=== PATIENT | female | born 1940 | race Caucasian/White ===

== ENCOUNTER 2016-11-06 10:36 | Outpatient (CLI) | payer MEDICARE, OTHER | END 2016-11-06 10:37 | disposition home or self-care (01) | DX: Z78.0 Asymptomatic menopausal state (principal) ==

== ENCOUNTER 2017-02-24 12:47 | Outpatient (CLI) | payer MEDICARE, OTHER ==
--- NOTE | 2017-02-26 07:53 | Mammography Report ---
DIGITAL BILATERAL SCREENING MAMMOGRAM: 02/24/2017 CLINICAL HISTORY: A 76-year-old female in for routine screening mammogram. Patient indicates no fam sarah history of breast cancer. No breast surgical history. COMPARISON: 06/06/2007, 05/21/2008, 05/16/2009, 04/24/2010, 06/15/2011, 11/09/2012, 12/12/2013, 12/08, 02/20/2016 TECHNIQUE: Craniocaudad and oblique lateral views of each breast were obtained with [employer] Full Fie ld digital mammography. FINDINGS: Breast parenchyma consists of scattered fibroglandular densities. No significant clusters of calcification are seen. No significant masses are noted. No change is detected. IMPRESSION: BREASTS APPEAR RADIOGRAPHICALLY BENIGN. BIRADS CATEGORY 1 - NEGATIVE. RECOMMENDATIONS: Annual bilateral screening mammography. STANDARD QUALIFYING STATEMENTS 1. This examination was reviewed with the aid of Computer-Aided Detection (CAD). 2. A negative or benign imaging report should not delay biopsy if clinically suspicious findings are present. Consider surgical consultation if warranted. More than 5% of cancers are not identified by i maging. 3. Dense breasts may obscure an underlying neoplasm. 08:9:45 JOB #: [id number] EXT JOB #:[id number]
== END 2017-02-24 12:48 | disposition home or self-care (01) ==
LOC: DI 12:47
PROVIDERS: ATTEND Physician Assistant Medical
DX: Z12.31 Encounter for screening mammogram for malignant neoplasm of breast (principal)
CPT/HCPCS: 77067

== ENCOUNTER 2018-04-28 14:57 | Outpatient (CLI) | payer MEDICARE, OTHER ==
--- NOTE | 2018-05-03 11:39 | Mammography Report ---
Reason: SCREENING MAMMO Procedure Date: 04/28/2018 Accession Number: [id number] / [id number] Procedure: [facility] - Screening Mammo Dig Bilat CPT Code: FULL RESULT: EXAM: Screening Mammo Dig Bilat DATE: 04/28/2018 3:27 PM CLINICAL HISTORY: 77 year-old nulliparous female presents for screening mammogram. TECHNIQUE: Bilateral CC and MLO views were obtained. COMPARISON: 02/24/2017, 02/20/2016, 01/01/2015, 12/12/2013. FINDINGS: The breasts demonstrate scattered fibroglandular densities bilaterally. There is a well-circumscribed hyperdense enlarging 6 mm mass in the left upper breast at middle depth, 7.1 cm from the nipple at the 11:00 position. The finding is not definitely present in 2014, question early present in 2015 and enlarged compared to 2016. While this finding may represent a lymph node, no definite fatty hilum is appreciated. This finding should be further evaluated by spot views and ultrasound. No suspicious right breast masses, clustered microcalcifications, or regions of architectural distortion are identified. IMPRESSION: Incomplete examination RECOMMENDATION: Additional evaluation as above. BIRADS CATEGORY 0: Incomplete examination STANDARD QUALIFYING STATEMENTS: 1. This examination was not reviewed with the aid of Computer-Aided Detection (CAD). 2. A negative or benign imaging report should not delay biopsy if clinically suspicious findings are present. Consider surgical consultation if warrented. More than 5% of cancers are not identified by imaging. 3. Dense breasts may obscure an underlying neoplasm.
== END 2018-04-28 14:58 | disposition home or self-care (01) ==
LOC: DI 14:57
PROVIDERS: ATTEND Radiology Diagnostic Radiology
DX: Z12.31 Encounter for screening mammogram for malignant neoplasm of breast (principal)
CPT/HCPCS: 77067

== ENCOUNTER 2018-05-18 08:33 | Outpatient (CLI) | payer MEDICARE, OTHER ==
--- NOTE | 2018-05-18 14:55 | Mammography Report ---
Reason: ABN MAMMO - LT SPEC VIEWS Procedure Date: 05/18/2018 Accession Number: [id number] / [id number] Procedure: [facility]ENN[facility] - Diag Special Views Dig LT CPT Code: FULL RESULT: EXAM: Diag Special Views Dig LT DATE: 05/18/2018 9:16 AM CLINICAL HISTORY: 77-year-old female recalled from screening for a 6 mm mass in the left upper breast. TECHNIQUE: Left spot CC and MLO views are performed. Focused breast ultrasound is also performed. COMPARISON: 04/28/2018, 02/24/2017. FINDINGS: The breasts demonstrate scattered fibroglandular densities bilaterally. The well-circumscribed hyperdense mass persists on mammographic spot views. Focused breast ultrasound reveals a heterogeneous subcutaneous collection/mass. Physical examination and history revealed that is likely a sebaceous cyst. Based on this, the radiologist expressed the lesion with findings consistent with a sebaceous cyst. Follow-up ultrasound revealed a ducts leading from the lesion to the skin surface, consistent with sebaceous cyst. A benign finding. IMPRESSION: Benign findings RECOMMENDATION: Recommend routine annual Screening mammography unless otherwise clinically indicated. BIRADS CATEGORY 2: Benign findings STANDARD QUALIFYING STATEMENTS: 1. This examination was not reviewed with the aid of Computer-Aided Detection (CAD). 2. A negative or benign imaging report should not delay biopsy if clinically suspicious findings are present. Consider surgical consultation if warrented. More than 5% of cancers are not identified by imaging. 3. Dense breasts may obscure an underlying neoplasm.
== END 2018-05-18 08:34 | disposition home or self-care (01) ==
LOC: DI 08:33
PROVIDERS: ATTEND Physician Assistant Medical
DX: N63.20 Unspecified lump in the left breast, unspecified quadrant (principal); R92.8 Other abnormal and inconclusive findings on diagnostic imaging of breast
CPT/HCPCS: 76642

== ENCOUNTER 2018-12-06 08:59 | Outpatient (CLI) | payer MEDICARE, OTHER ==
--- NOTE | 2018-12-12 14:54 | DEXA Report ---
Reason: POSTMENOPAUSAL STATUS Procedure Date: 12/06/2018 Accession Number: [id number] / [id number] Procedure: DEX - Dexa Spine and/or Hip CPT Code: FULL RESULT: EXAM: Dexa Spine and/or Hip DATE: 12/06/2018 9:22 AM CLINICAL HISTORY: POSTMENOPAUSAL STATUS TECHNIQUE: Dual energy x-ray absorptiometry (DXA) was performed on a [employer] System. Regions measured are the AP Spine, femoral neck, and if needed forearm. COMPARISON: 11/06/2016 In accordance with the International Society for Clinical Densitometry (ISCD) guidelines, data from previous exams may be reanalyzed using current recommendations and techniques. This is done to allow a more accurate basis for comparison with the current study. FINDINGS: The data for the lumbar spine is as follows: BMD (g/cm/cm) T-SCORE Z-SCORE REGION L1 1.236 0.9 2.1 L2 1.522 2.7 3.9 L3 1.683 4.0 5.2 L4 1.380 1.5 2.7 TOTAL 1.462 2.3 3.5 NOTE: All evaluable vertebrae are used for classification The data for the hip is as follows: BMD (g/cm/cm) T-SCORE Z-SCORE REGION Neck 0.933 -0.8 0.9 TOTAL 1.140 1.0 2.5 NOTE: The femoral neck or total proximal femur, whichever is lowest, is used for classification. DXA RESULTS SUMMARY: Spine SCAN DATE AGE BMD CHANGE VS CHANGE VS PREVIOUS PREVIOUS % [birth year][age]06/2018 77.3 1.462 0.011 ----- 11/06/2016 70.1 1.451 * Denotes significant change at the 95% confidence level. Denotes dissimilar scan types or analysis methods. DXA RESULTS SUMMARY: Hip SCAN DATE AGE BMD CHANGE VS CHANGE VS PREVIOUS PREVIOUS % [birth year][age]06/2018 77.2 1.140 0.010 ----- 11/06/2016 70.1 1.130 * Denotes significant change at the 95% confidence level. Denotes dissimilar scan types or analysis methods. IMPRESSION: THE WHO CLASSIFICATION BASED ON THE INTERNATIONAL REFERENCE STANDARD IS NORMAL. THE FRACTURE RISK IS NOT INCREASED. Please note that due to technical factors the interval percentile change compared the previous study could not be calculated. RECOMMENDATION: Patients with diagnosis of osteoporosis or osteopenia should have regular bone mineral density assessment. For those eligible for Medicare, routine testing is allowed once every 2 years. Testing frequency can be increased for patients who have rapidly progressing disease or for those who are receiving medical therapy to restore bone mass. COMMENT: World Health Organization (WHO) definitions for osteoporosis and osteopenia: NORMAL BMD: T-score at -1.0 or higher, fracture risk is low OSTEOPENIA BMD: T-score between -1.0 and -2.5, fracture risk is increased. OSTEOPOROSIS BMD: T-score at -2.5 or lower, fracture risk is high. National Osteoporosis Foundation recommends: 1. Obtain adequate dietary calcium (at least 1200 mg per day) and vitamin D (400-800 international units per day). 2. Participate, as appropriate, in regular weightbearing and muscle-strengthening exercise. 3. Avoid tobacco use and reduce alcohol and caffeine intake. 4. For more detailed information see the website at www.NOF.org.
== END 2018-12-06 09:00 | disposition home or self-care (01) ==
LOC: DI 08:59
PROVIDERS: ATTEND Family Medicine
DX: Z78.0 Asymptomatic menopausal state (principal)
CPT/HCPCS: 77080